=== PATIENT | male | born 1985 | race Caucasian/White ===

== ENCOUNTER 2019-01-14 11:38 | Emergency (ER) | payer OTHER, SELFPAY ==
[2019-01-14 11:39] VITALS: BP 162/97; PULSE 94; RESP 16; TEMP 35.6; O2SAT 97; BMI 33.6
--- NOTE | 2019-01-14 11:58 | CT_ITS ---
STUDY: CT BRAIN WITHOUT CONTRAST REASON FOR EXAM: Male, 33 years old. Dizziness RADIATION DOSAGE (If Supplied By Facility): DLP = ( 796.11 ) mGycm TECHNIQUE: Transaxial CT imaging of the brain was performed without administration of intravenous contrast material. Individualized dose optimization techniques were used for this CT. COMPARISON: None. FINDINGS: There is no acute bleed or infarct. There are normal white matter tracts. The ventricles are normal in configuration. There is no hydrocephalus. The visualized paranasal sinuses are clear. The mastoid air cells are well aerated. There is no skull fracture. CT/Brain/Head without Contrast IMPRESSION: No acute intracranial abnormality. Electronically Signed: Prasanth Burns, at 12:46 EDT Tel , Service support ,
--- NOTE | 2019-01-14 11:59 | EKG12_ITS ---
Test Reason : DIZZINESS Blood Pressure : / mmHG Vent. Rate : 098 BPM Atrial Rate : 098 BPM P-R Int : 152 ms QRS Dur : 098 ms QT Int : 376 ms P-R-T Axes : 050 055 018 degrees QTc Int : 480 ms Normal sinus rhythm Prolonged QT Abnormal ECG Confirmed by NINO MELTON MD ([id number]), editor producer GHANSHYAM WHITE ([id number]) on 01/15/2019 1:16:32 PM Referred By: MELY Confirmed By:NINO MELTON MD
--- NOTE | 2019-01-14 12:00 | ED.DCSUM_ITS ---
History of Present Illness <LinkLouis - Last Filed: 01/14/19 14:15> Informant: Patient, Significant Other Onset: Yesterday Context: Sudden Onset Timing: Continuous Quality: spinning sensation Location: head Current Severity: Moderate Maximum Severity: Severe Worsened by: movements, walking Relieved by: rest, lying flat Associated Symptoms: nausea and vomiting Narrative: 33-year-old male who denies any significant past medical history presents to the emergency department with dizziness, nausea and vomiting. Patient accompanied by his today. He was sitting last evening at dinner approximately 8 PM had a sudden onset while at rest of room spinning sensation nausea and vomiting. He states that he has been able to lie flat and rest with some improvement however anytime he gets up to move around or walk he immediately begins to feel the spin luis alberto sensation again and have nausea and vomiting. He has not had any difficulty with speech or visual changes numbness tingling or weakness. He is not having any neck pain. He denies history of similar symptoms. No falls traumas or injuries. He denies any other review of systems. Prior similar symptoms: No Recent Illness/Hospitalization: No <Everette Echols - Last Filed: 01/27/19 15:46> Chief Complaint: Dizziness Past Medical History <LinkLouis - Last Filed: 01/14/19 14:15> Prior records reviewed: Yes Past Medical History: None Surgical History: no surgical history Lives: With Family Smoking Status: Never smoker Alcohol: None, Occasional Drugs: None <Everette Echols - Last Filed: 01/27/19 15:46> - Allergies and Home Meds Allergies/Adverse Reactions: Allergies No Known Allergies Allergy (Verified 01/14/19 11:41) Primary Care Physician: Care Physician,No Primary [Primary Care Provider] - Review of Systems All systems negative except as indicated Gastrointestinal: Reports: Nausea, Vomiting Neurological: Reports: - - dizziness <Everette Echols - Last Filed: 01/27/19 15:46> Physical Exam Vital Signs/Narrative: Vital Signs Temp Pulse Resp BP Pulse Ox 01/14/19 12:58 98 14 140/91 H 98 01/14/19 11:39 96.1 F L 94 16 162/97 H 97 <Louis Maza - Last Filed: 01/14/19 14:15> Vital Signs/Narrative: Vital Signs Temp Pulse Resp BP Pulse Ox 01/14/19 11:39 96.1 F L 94 16 162/97 H 97 General: Well nourished, Well developed, No Acute Distress Head: Normocephalic, Atraumatic Eyes: Perrl, EOMI ENT: Moist mucous membranes, No rhinorrhea, TM's clear. Negative for: Nasal congestion, Sinus tenderness Neck: Supple, Nontender Cardiovascular: Regular rate, Regular rhythm, No murmurs Respiratory: No distress, CTA bilaterally, Chest nontender Abdomen: Soft, Nontender, Nondistended, Normal bowel sounds, No masses Back: Nontender Extremities: Nontender, No edema Skin: Normal color, No rash Neurological: Alert, Oriented x3, Cranial nerves II-XII grossly intact, Normal Strength, Normal Sensation <Everette Echols - Last Filed: 01/27/19 15:46> Diagnostic/Tx/Re-eval - Medical Decision Making I saw and evaluated the patient with our physician professional nursing assistant. Patient had dizziness that began last night. No headache. No head trauma. No prior history. No trouble moving his arms or legs. He describes it as a spinning and dizziness. He denies any other complaints other than nausea associated with it. Vital signs are stable and afebrile. HEENT exam is normal. Neck is nontender. Lungs clear to auscultation. Heart regular rhythm no murmur. Abdomen soft nontender. Patient moving all 4 extremities. Neurovascular intact. Neurologically is awake and alert. NIH score is 0. Fingertip to nose [id number] both within normal limits. Normal bilateral mailing jogger strength normal bilateral dorsi and plantar flexion. Hallpike maneuver does elicit his dizziness. History and exam are consistent with vertigo. Screening labs and CT of his brain showed no acute abnormality. Patient was treated with p.o. Valium. On repeat exam at 1410 he is doing well. And is comfortable being discharged home. Acute benign positional vertigo <Louis Maza - Last Filed: 01/14/19 14:15> ED Disposition <Louis Maza - Last Filed: 01/14/19 14:15> <Everette Echols - Last Filed: 01/27/19 15:46> - Plan for ED Patient: Disposition: Home or Assisted Living Diagnosis: Vertigo Instructions: VERTIGO, Unspecified Prescriptions: Ondansetron [Zofran Odt] 4 mg PO Q8H PRN PRN #10 tab PRN Reason: Nausea Prescription Printed Referrals: Care Physician,No Primary [Primary Care Provider] -
[2019-01-14] MEDS: proMETHazine 25 MG/ML Syringe 12.5 MG IV (12:11)
[2019-01-14] MEDS: 0.9% Normal Saline 1,000 ML 1000 ML IV (12:11)
[2019-01-14 12:17] LABS: Absolute Lymphocyte Count 1.24 X10^3/ul (0.83-4.51); Absolute Neutrophil Count 8.1 X10^3/uL (2.0-7.7); Hematocrit 43.2 % (40-54); Hemoglobin 15.7 g/dl (13.0-16.5); Lymphocyte # 1.24 X10^3/ul (4.0); Lymphocyte % 12.8 % (19-41); Mean Corp Hgb Conc 36.3 g/gl (32-36); Mean Corpuscular Hgb 33.4 pg (27.0-32.0); Mean Corpuscular Volume 91.9 fL (80-94); Mean Platelet Vol. 8.7 fl (6.2-12.0); Monocyte# 0.38 X10^3/uL; Monocyte% 3.9 % (0-10); Neutrophil # 8.06 X10^3/uL (2.7-7.7); Neutrophil % 83.1 % (47-70); Platelet Count 268 K/mm3 (150-450); RBC Distribution Width CV 12.2 % (11.6-14.6); RBC Distribution Width SD 41.3 fl (35.1-43.9); White Blood Count 9.7 K/mm3 (4.4-11.0)
[2019-01-14 12:20] LABS: POSITIVE COUNT NO; POSITIVE DIFFERENTIAL NO; POSITIVE MORPHOLOGY NO
[2019-01-14 12:23] LABS: Anion Gap 6 (5-15); BUN 13 mg/dL (7-18); BUN/Creat Ratio 14.3 RATIO (10-20); Calcium,Total 9.5 mg/dL (8.5-10.1); Chloride 106 mmol/L (98-107); Creatinine, Serum 0.91 mg/dL (0.70-1.30); EST Glomerular Filtration Rate 100 mL/min (>60); Est Glom Filt Rate - Afr Amer 121 mL/min (>60); Estimated Creatinine Clearance 124.36 ml/min; Glucose 120 mg/dL (74-106); Potassium 3.7 mmol/L (3.5-5.1); Sodium Level 138 mmol/L (136-145)
[2019-01-14 12:58] VITALS: BP 140/91; PULSE 98; RESP 14; O2SAT 98
[2019-01-14 13:12] LABS: Bacteria 0 SEEN /hpf (None Seen); Mucous, Urine 0 SEEN /hpf (<or=2+); Red Blood Cells-Urine 0 SEEN /hpf (0-5); Squamous Epithelial Cells - UA 0 SEEN /hpf (0-5); White Blood Cells 0 SEEN /hpf (0-5)
[2019-01-14 13:25] LABS: Color, Urine Yellow (Yellow); Glucose, Dipstick Normal (Normal); Ketone-Dipstick 5 mg/dl (Negative); Leukocyte Esterase-Dipstick Negative /ul (Negative); Nitrite-Dipstick Negative (Negative); Occult Blood-Urine Negative /ul (Negative); Protein-Dipstick 15 mg/dl (Negative); Urine Bilirubin Dipstick Negative (Negative); Urine Clarity Clear (Clear); Urine Urobilinogen Normal (Normal)
[2019-01-14 13:39] LABS: Amorphous Sediment 1+
[2019-01-14] MEDS: diazePAM 5 MG Tablet PO (13:51)
== END 2019-01-14 14:39 | disposition home or self-care (01) ==
PROVIDERS: Emergency Provider Physician Assistant Medical
DX: R42 Dizziness and giddiness (principal); R11.2 Nausea with vomiting, unspecified
CPT/HCPCS: 70450; 80048; 81001; 85025; 93005; 96361; 96374; 96375; 99285

== ENCOUNTER 2019-04-12 10:00 | Outpatient (RCR) | payer OTHER, SELFPAY ==
--- NOTE | 2019-03-20 10:53 | HP.PTEVAL_ITS ---
Patient's Visit Information LEXY BRENNAN is a 34 year old M referred to Physical Therapy by MARYCRUZ ANAYA with a diagnosis of Dizziness and giddiness.. Date of Evaluation: 03/20/19 Physical Therapist: Fredy Pineda, DPT, OCS, CSCS - Visit Plan Frequency: 1x/Week Duration: 4-6 Weeks Plan: weekly x 4-6 as needed for progression of habituation adn adaptation exercises. - Subjective Findings: End of November sitting on back porch just started spinning adn puking. That night was rocking on a chair. Was throwing BP earlier in the day adn was doing OK at that point. Never had vertigo previously. Went to ER that night and did catscana dn EKG adn blood work adn urine sample and they were all negative. Overall improving but not gone. Is left with some focussing problems pitching. Head movement seems to be the problem, feels unsteadya t times, walking at the [employer] store and lots of lights and busy zoroastrianism effect him and cause some difficulty focussing. Out of those environments is better. Staring at computer in office can make him feel wierd. No nausea adn no spinning. Not on meds anymore. 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 Not missing work. Missed one week initially. Sleeping well. May spin a little if he turns in bed wrong. 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 - Objective Oculomotor: + L head thrust, - skew eye deviation, convergence normal. Pursuit and saccades normal, VOR symptomatic 3/10 30 seconds. horizontal seated. no nystagmus with gaze or head shake. MSQ: - B hallpike duke, - roll test. 180 turns slight dizzyness, down to knee normal, up from knee mini al dizzyness short term. Normal walking and gait. - Balance Scores Functional Gait Assessment Score: 28 % Disability: 6.6700 CATSIB Score (Max score 120 seconds): 120 - Goals Goal 1:: Abolish dizzyness feeling Goal Time Frame: 2-4 Weeks Goal 2:: Throw football without symptoms. Goal Time Frame: 2-4 Weeks Goal 3:: Focus computer at work 100% without symptoms Goal Time Frame: 2-4 Weeks Goal 4:: 30/30 FGA Goal Time Frame: 2-4 Weeks - Rehabilitation Potential Physical Therapy Diagnosis: Likely unilateral vestibular hypofunction. Rehabilitation Potential: Fair - Anticipated Interventions Patient/Client Instruction: Educate patient on: Condition, Plan of Care Other: to decrease symptoms Comment: adaptationa dn habituation. For the Purpose of:: To increase tolerance to activity/condition/position Thank you for the opportunity to evaluate your patient. For Medicare and Medicare HMO plans, please review the plan of care and approve it. It will need to be FAXED BACK to us at [phone] for Medicare purposes. For Medicare only, by signing this I certify the plan of care. Please let me know if there are questions or concerns regarding this plan of care. Physician Signature: Date:
--- NOTE | 2019-04-12 10:30 | HP.PTDCSUM ---
HP - PT D/C Summary It has been my pleasure to treat LEXY BRENNAN under orders from MARYCRUZ ANAYA, for the diagnosis of Dizziness and giddiness. for a total of 4 visit(s). Discharge Date: 04/12/19 Please see the following information for a summary of their discharge status. - Subjective Subjective: Tuesday and Tuesday were horrible days. Head felt like it was moving all day. No major changes over the last month. Can do everything he needs to do. Played basketball the other night. Not sure why Tuesday and Tuesday were wrose. Nothing unusual those days. Nothiong scheduled with doctor. Sleeping is OK for the most part. Almost feels anxiety. Basic aDLs are normal. Football games have been no problem. - Overall Improvement % Improvement: 20 - Objective Objective/Function: MSQ pretty benign with no symptoms lasting >1 sec. FGA is perfect and 2 points better than initially. Pt doing well with function and seems to understand progressions from this poit with specific activities. Is to contact doctor if symptoms don't cotninue to improve. - Goals Goal 1:: Abolish dizzyness feeling Goal Progress: Progressing, ack of focus Goal 2:: Throw football without symptoms. Goal Progress: Goal Met Goal 3:: Focus computer at work 100% without symptoms Goal Progress: Goal Met Goal 4:: FGA Goal Progress: Goal Met - Plan Plan: D/C, improving slowly. - D/C Information Discharge Comments: Pt to contact doctor if symptmos don't continue to improve. If there are questions or concerns regarding this patient's physical therapy, please feel free to call me at [phone]. Thank you for the referral of this patient. Sincerely, Fredy Pineda, DPT, OCS, CSCS
== END 2019-04-12 19:00 | disposition home or self-care (01) ==
LOC: PT 10:00
DX: R42 Dizziness and giddiness (principal)
CPT/HCPCS: 97162; 97530